=== PATIENT | female | born 1980 | race Caucasian/White ===

== ENCOUNTER 2021-05-05 18:53 | Emergency (ER) | payer BC, SELFPAY ==
[2021-05-05 19:05] VITALS: BP 127/93; PULSE 74; RESP 18; TEMP 36.7; O2SAT 100
--- NOTE | 2021-05-05 19:27 | ED.FEMALEGU ---
HPI - Female Genitourinary General Stated complaint: Urinary Problem Time Seen by Provider: 05/05/21 19:24 Source: patient and RN notes reviewed Mode of arrival: ambulatory Limitations: no limitations History of Present Illness HPI Narrative: 40-year-old female presents with concern for perineal burning, low back discomfort, abdominal discomfort. Reports she had a hysterectomy 2 weeks ago and a bladder sling. Reports having abdominal discomfort post op, that had yet to resolve, however it feels mildly worse. Reports she has been doing more activity than usual and might have overdone it . She denies fever, body aches, chills, nausea, vomiting. Reports normal bowel movements, normal urine output. Denies frequency or urgency. Denies abnormal vaginal bleeding. MD elicited complaint: UTI Related Data Allergies Allergy/AdvReac Type Severity Reaction Status Date / Time vancomycin Allergy Anaphylaxis Verified 05/05/21 19:35 Review of Systems Review of Systems: CONSTITUTIONAL: Denies malaise, chills, sweats, or fever. CARDIOVASCULAR: Denies chest pain, palpitations, or edema. RESPIRATORY: Denies cough or dyspnea. GASTROINTESTINAL: Reports lower abdominal discomfort. Denies nausea, vomiting, diarrhea, bloody, or mucous stools. GENITOURINARY: Reports dysuria. Denies frequency, urgency hematuria. SKIN: Denies rash or itching. MUSCULOSKELETAL: Reports low back pain. Denies myalgia. All systems reviewed & are unremarkable except as noted in HPI and below PMFSH Comments At time of signature, agree with nursing past medical, surgical, social and family history. There is no relevant family history pertinent to the presenting complaint Exam Narrative: GENERAL: Well-appearing, well-nourished, and in no acute distress. HEAD: Normocephalic. EYES: PERRLA, conjunctivae clear. NECK: Supple. No lymphadenopathy CHEST: Clear to auscultation. No respiratory distress. HEART: Regular rate and rhythm. ABDOMEN: Soft, mild suprapubic tenderness upon palpation, nondistended, normal active bowel sounds, no palpable or pulsatile masses, no guarding. No CVA tenderness SKIN: Warm, dry, no rash. NEURO: Alert and oriented x3. PSYCH: Normal mood and affect Course Course Emergency Course: Patient is aware of diagnosis, understands and agrees to treatment plan. Anticipatory guidance given. Patient agrees to follow-up as directed and is aware of reasons to seek care at the emergency department. Portions of this record may have been created with voice recognition software Vital Signs Vital signs: Vital Signs Temperature 98.1 F 05/05/21 19:05 Pulse Rate 74 05/05/21 19:05 Respiratory Rate 18 05/05/21 19:05 Blood Pressure 127/93 H 05/05/21 19:05 Pulse Oximetry 100 05/05/21 19:05 Temperature 98.1 F 05/05/21 19:05 Pulse Rate 74 05/05/21 19:05 Respiratory Rate 18 05/05/21 19:05 Blood Pressure 127/93 H 05/05/21 19:05 Pulse Oximetry 100 05/05/21 19:05 Reviewed. MDM - Female Genitourinary MDM Narrative Medical decision making narrative: Exam findings and UA show no acute concerns or changes; patient is non-toxic appearing and is in no distress. Patient is appropriate for outpatient treatment and follow-up. Differential Diagnosis Differential diagnosis: Likely urinary tract infection, cystitis and other (Infection, postop infection) Lab Data Labs: Urine Glucose Negative Reference Range: Negative Urine Bilirubin Negative Reference Range: Negative Urine Ketone Negative Reference Range: Negative Urine Specific [place] 1.025 Reference Range:1.001-1.035 Urine Blood Negative Refere
== END 2021-05-05 19:40 | disposition home or self-care (01) ==
PROVIDERS: Emergency Provider Nurse Practitioner; PCP Urology
DX: R30.0 Dysuria (principal); N80.9 Endometriosis, unspecified; E28.2 Polycystic ovarian syndrome; Z86.14 Personal history of Methicillin resistant Staphylococcus aureus infection; Z86.16 Personal history of COVID-19
CPT/HCPCS: 81003; 87086; 99213; G0463

== ENCOUNTER 2022-10-05 19:34 | Emergency (ER) | payer BC, SELFPAY ==
[2022-10-05 19:42] VITALS: BP 123/78; PULSE 92; RESP 16; TEMP 37.7; O2SAT 98
--- NOTE | 2022-10-05 19:56 | ED.URI ---
HPI - URI/Sore Throat General Chief Complaint: Upper Respiratory Infection Stated Complaint: Sore Throat Time Seen by Provider: 10/05/22 19:50 Source: patient, RN notes reviewed and old records reviewed Mode of arrival: ambulatory Limitations: no limitations History of Present Illness HPI Narrative: 42-year-old female who presents [facility] with complaints of sore throat, nasal drainage, feeling of congestion and has felt hot and flushed with some low grade fevers for the past 2 days. She states that she had strep throat in July with her present symptoms similar to then. She reports that several family members have had recent strep exposure. Patient has not taken any OTC medications. Daniella reports that she took some left over [place] for her discomfort. . MD elicited complaint: fever, sore throat, rhinorrhea and nasal congestion Onset (ago): day(s) (2) Pain scale (0-10): 6 Treatments prior to arrival: other (left over pain med) Related Data Home Medications Medication Instructions Recorded Confirmed sertraline 100 mg tablet 100 mg PO DAILY 05/05/21 10/05/22 Allergies Allergy/AdvReac Type Severity Reaction Status Date / Time vancomycin Allergy Anaphylaxis Verified 05/05/21 19:35 Review of Systems Review of Systems: CONSTITUTIONAL:Reports malaise, chills, sweats, or fever. EYES: Denies visual changes, redness, or discharge. ENT: Reports rhinorrhea, congestion, sinus pain,no otalgia positive for sore throat. CARDIOVASCULAR: Denies chest pain, palpitations, or edema. RESPIRATORY: Reports no cough.? Denies dyspnea. GASTROINTESTINAL: Denies abdominal pain, nausea, vomiting, diarrhea SKIN: Denies rash or itching. MUSCULOSKELETAL: Denies myalgia. NEUROLOGIC: Denies headache. All systems reviewed & are unremarkable except as noted in HPI and below PMFSH Past Medical History Medical History (Updated 10/09/22 @ 07:50 by Corina Vance NP) Arm vein blood clot from PICC line Endometriosis MRSA (methicillin resistant Staphylococcus aureus) PCOS (polycystic ovarian syndrome) UTI (urinary tract infection) Surgical History Surgical History (Updated 10/09/22 @ 07:43 by Corina Vance NP) H/O foot surgery bunionectomy then infection with total of 7 surgeries H/O: hysterectomy History of bladder surgery bladder surgery History of endometrial ablation Social History Social History (Updated 10/09/22 @ 07:47 by Corina Vance NP) Smoking status: Unknown if ever smoked Alcohol intake: unknown Substance use type: does not use Living arrangements: with family Gender identity (if verbalized by the patient): Female Comments At time of signature, agree with nursing past medical, surgical, social and family history. There is no relevant family history pertinent to the presenting complaint Exam Narrative: GENERAL: Well-appearing, well-nourished, and in no acute distress. HEAD: Normocephalic EYES: PERRLA, conjunctivae clear ENT: Nares clear, turbinates edematous and erythematous, clear discharge. Mucous membranes moist. TM pearly dai with dull light reflex bilaterally; no tragal tenderness. Oropharynx erythematous without lesions. Tonsils red enlarged and without exudate, no drooling, no hoarseness, no trismus, uvula midline.post nasal discharge NECK: Supple lymphadenopathy CHEST: Clear to auscultation, breath sounds equal. No wheezing, rhonchi, rales, or stridor. No respiratory distress, speaks in full sentences.SAO2 98% on room air HEART: Regular rate and rhythm. No murmur heard. SKIN: Warm, dry, no rash. NEURO: Alert and oriented x3. PSYCH: Normal mood and affect Course Course Emergency Course: Patient is aware of diagnosis, understands and agrees to treatment plan.? Anticipatory guidance given.? Patient agrees to follow-up as directed and is aware of reasons to seek care at the emergency department. Portions of this record may have been created with fatou
== END 2022-10-05 20:19 | disposition home or self-care (01) ==
PROVIDERS: Emergency Provider Registered Nurse; PCP Internal Medicine
DX: J02.9 Acute pharyngitis, unspecified (principal)
CPT/HCPCS: 87081; 87880; 99213; G0463

== ENCOUNTER 2025-04-30 09:57 | Emergency (ER) | payer BC, SELFPAY ==
[2025-04-30 10:14] VITALS: BP 114/84; PULSE 83; RESP 18; TEMP 36.6; O2SAT 98
--- OUTSIDE RECORDS SUMMARY | 2025-04-30 10:30 | XMS_ITS | Clinical Summary ---
Author Organization [facility] Address [address] [place] [address] Care Team Providers Care Stitch Burnisher Name Role Phone Jaguar Crespo MD Primary Care Provider Flaco Walden MD Unavailable [phone] Jarred Fuentes MD Unavailable [phone] Dipak Broderick MD Unavailable [phone] Allergies Active Allergy Reactions Criticality Noted Date Comments Benzyl Alcohol Rash Medium 04/09/2023 Allergy patch tested positive Cocamidopropyl Betaine Rash Medium 04/09/2023 Allergy patch tested positive Poison Mary Extract Hives,Itching,Rash High 3 Suspect same reaction with poison oak and sumac Shrimp Anaphylaxis,Rash High Vancomycin Anaphylaxis,Rash High 06/21/2017 Medications sertraline (ZOLOFT) 100 mg tablet Take 1 tablet (100 mg total) by mouth every morning 90 tablet 3 4 Active topiramate (TOPAMAX) 50 mg tablet Take 1 tablet (50 mg total) by mouth 2 (two) times a day Active rosuvastatin (CRESTOR) 5 mg tablet Take 1 tablet (5 mg total) by mouth 3 (three) times a week Saturday, Saturday, and Saturday nights Active spironolactone (ALDACTONE) 100 mg tablet Take 1 tablet (100 mg total) by mouth nightly 5 Active acetaminophen (TYLENOL) 500 mg tablet Take 2 tablets (1,000 mg total) by mouth every 6 (six) hours as needed for pain 60 tablet 5 Active ibuprofen (ADVIL,MOTRIN) 600 mg tablet Take 1 tablet (600 mg total) by mouth 4 (four) times a day as needed for pain (pain) 30 tablet 5 12/12/19 26 Active oxyCODONE (ROXICODONE) 5 mg immediate release tabletIndicatio ns:Pain Take 1 tablet (5 mg total) by mouth every 4 (four) hours as needed for pain 10 tablet 5 Active Additional Information Patient not taking.Reported on 12/23/2024 ondansetron (ZOFRAN) 4 mg tablet Take 1 tablet (4 mg total) by mouth 2 (two) times a day as needed for nausea 20 tablet 5 Active Additional Information Patient not taking.Reported on 12/23/2024 Active Problems Problem Noted Date Diagnosed Date Endometriosis of uterus 11/19/2024 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, in cluding poison mary, sumac, and oak 11/07/2022 Assessment & Plan (11/20/2022 8:58 AM CDT): Improving Allergy added to her list in chart Continue with steroid cream as directed by dermatology Follow up with dermatology as scheduled Encouraged to call if symptoms recur or worsen Encouraged to avoid toxin of plants- wear appropriate clothing to cover exposed areas if planned to be outdoors and around any weeds or brush Patient informed if needs to be treated again, a high dose steroid would be recommended to treat Assessment & Plan (11/07/2022 2:01 PM CDT): Avoid bleach baths OTC Aveeno oat baths prn for itching OTC Benadryl for itching-use as directed-encouraged to avoid taking in daytime or while driving if sedation present Ordered medrol dose pack OTC Calamine lotion or MARY Dry-use as directed Call and schedule appointment if no improvement or worsening Good hand hygiene Avoid scratching-trim nails if needed to avoid scratching vesicles open History of 2019 novel coronavirus disease (COVID -19) 06/07/2022 Mixed hyperlipidemia 06/07/2022 Constipation 04/24/2021 Overview (04/24/2021): Added automatically from request for surgery [id number] Chronic idiopathic constipation 04/06/2021 Urinary, incontinence, stress female 02/24/2021 Overview (02/24/2021): Added automatically from request for surgery [id number] Adhesive capsulitis of right shoulder 12/22/2020 Residual hemorrhoidal skin tags 04/07/2019 Right foot pain 06/09/2018 Overview (06/09/2018): Added automatically from request for surgery [id number] Right arm pain 04/01/2018 Assessment & Plan (04/01/2018 11:27 AM CDT): Please refer to care plan under acute DVT of right upper extremity Acute deep vein thrombosis (DVT) of right upper extremity 03/14/2018 Assessment & Plan (04/01/2018 11:26 AM CDT): Completing holding call right upper extremity duplex extending all the way up to the jugular due to her concurrent right-sided neck pain. Will follow up with patient within addendum to be created the end of this note once receiving the upper extremity duplex. However comparison results are somewhat limited due to vascular surgery not identify exact sizing and exact location of the DVT in right upper extremity 1 previously scan on 03/13. I did educate both daughter as well as mother that often if I am unable to conclude that there is no new clots with this repeat scan due to lack of comparison I would recommend consultation to vascular surgery. We will touch base after completing test, of course continuing Eliquis b.i.d. as previously prescribed and determine need for additional management within addendum and of note Assessment & Plan (03/14/2018 12:08 PM CDT): Likely associated w/ PICC line, but pt was also on oral contraception. - Would d/c PICC line (no additional need for use from an ID standpoint) - Anticoagulation +/- hypercoagulable work-up per primary service + vascular surgery Assessment & Plan (03/14/2018 4:20 AM CDT): Doppler Studies: Extensive DVT in Right subclavian, axillary, and brachial veins. superficial vein thrombus in basilic vein. Chronic venous thrombus in the Left internal jugular vein. Likely due to termite treater ABX with PICC line placement and control medication Apri - heparin drip - Huger 5 q4h PRN - consider VIR consult for thrombolysis in the AM - discuss alternative control medication options for endometriosis and PCOS Osteomyelitis of right foot 03/14/2018 Assessment & Plan (03/18/2018 2:24 PM CDT): 37 y/o female with persistent destruction of her !st MT since bunionectomy surgery 1.5 years ago. One cx + MRSE in 05/2017 by aspiration and another + in 09/29 (cx from OR). She was treated initially with vanc, developed dress and was changed to doxy to complete her course. Presented to ortho recently with night sweats, xray revealed further destruction of her joint. OR 02/04 for I&D, resection of bone and placement of tobra abx spacer. OR cx NGTD from 02/04. She was originally on dapto/cefe, but developed leukopenia on cefepime. Her cefepime was stopped and she was started on levofloxacin 750mg po qd and continued the daptomycin to complete her last two weeks of antibiotics. In her 5th week of therapy, acutely had swelling and purple discoloration to her R arm. She went to local ED and was started on hep gtt for presumed DVT (No us in the ED). She was transferred to [facility], vascular surgery consult and admission to medicine. Transition to [facility]. Her picc line was pulled in house and she was switched to bactrim DS two tabs po bid to complete her course per ID consult by Dr. Zavala. Plan: - email below sent to dr Sunshine- communicating our plan. - our plan is to stop her antibiotics as we would any spacer in the setting of pji. Assuming ortho will give it some time, aspirate again before the next surgery to be sure the infection is clear. - will have her finish out the 3 days of bactrim she has left, then okay to stop. - her esr/crp were normal last week in house. - she can follow up here prn, dr. Ring or the pt can call with any questions or concerns. - we discussed there is no test to make sure the infection is gone and that there is always a risk of infection returning or coming up elsewhere. - advised she see her pcp this week to discuss testing for clotting disorder. She had insult (Picc) in the setting of OCP, but I thought it would be better to check and be sure no underlying clotting disorder. Assessment & Plan (03/14/2018 12:16 PM CDT): Hx R 1st MTP osteomyelitis (prior cultures w/ MRSE) s/p hardware removal + multiple I&Ds + prolonged course of IV antibiotics (most recently, 6 weeks of IV daptomycin + cefepime counting from 02/04/18, complicated by cefepime-induced neutropenia requiring replacement of IV cefepime w/ PO levofloxacin). Surgical wounds are well-healed and inflammatory markers are within normal limits (ESR 6). Original anticipated stop date for current long-term antibiotics was to be 03/18/18. - Continue IV daptomycin + PO levofloxacin for now via peripheral line - Will add-on CPK to existing bloodwork, LFTs within normal limits - If discharged prior to 03/18/18, can transition to Bactrim DS 1 tab PO bid alone (prior MRSE from 09/17/17 was susceptible to TMP-SMX) x 7 days to ensure completion of 6 weeks of appropriate antibiotics - Prior hx of ?blast on outside hospital peripheral blood smear - no evidence per ED notes on repeat smear performed at [facility] on 03/07/18. Pt remains a little anxious about this - consider repeating peripheral blood smear during this admission for reassurance. Assessment & Plan (03/14/2018 3:54 AM CDT): R MTP Osteomyelitis d/t complications from bunionectomy done at OSH. Followed by ID. intermediate frame tender ABX started 02/04/18 with Daptomycin and Cefepime planned for 6 weeks. Developed leukopenia thought to be 2/2 cefepime was switched to Levoquin recently. No systemic symptoms. Anticipated stop date: 03/18/18 - consult ID - continue ABX therapy as above prescribed by ID Major depressive disorder 03/14/2018 Assessment & Plan (04/01/2018 11:28 AM CDT): Increasing Zoloft to 125 mg a day. I did recommend taking her 100 mg a day tablet I also sent over another prescription for 25 mg a day totaling 125 daily. I did advise her that we can consider something such as BuSpar to help in the interim with any acute anxiety she is experiencing it may take good 3-5 days for this new level of medication to be effective. We will touch base with her in a week as scheduled and certainly in the interim with any additional questions or concerns Assessment & Plan (03/14/2018 4:15 AM CDT): - continue home Zoloft 100mg Pyogenic inflammation of bone 02/25/2018 Axillary lymphadenopathy 02/25/2018 Encounter for long-term (current) use of antibio tics 02/25/2018 Osteoarthritis of right foot 01/23/2018 Overview (01/23/2018): Added automatically from request for surgery [id number] Assessment & Plan (02/04/2018 4:06 PM CDT): This is presumed to be infectious osteomyelitis rather than osteoarthritis. Given nonresponse or recurrence from previous infections will treat broadly While awaiting cultures. -okay to place PICC line -daptomycin 400 mg IV Q 24 -cefepime 2 g IV q.12 -will follow up cultures and pathology and adjust as needed -presently, planning for 6 week course followed by suppression given the presence of new hardware Allergic reaction to drug 06/11/2017 Migraine 01/22/2013 Spells 01/22/2013 Encounter for suspected albino ature rupture of amniotic membranes, with rupture of membranes not found 37 weeks gestation of PCOS (polycystic ovarian syndrome) Encounters Date Type Department Care Team Description 02/03/2025 7:07 AM CDT - 02/03/2025 11:59 PM CDT Hospital Encounter [facility] - Imaging [address] [place] [id number] Mass of left breast, unspecified quadrant Discharge Disposition: Discharge to home or self care 02/03/2025 Results Follow-Up [facility] [address] [place] [address] Monik Manley, RN Diagnostic Mammogram Left W Miguel from Last 3 Months Immunizations Immunization Administration Dates Next Due Influenza, Quadrivalent, Spl it, Preservative Free, Intramuscular 04/15/2018,05/05/2015 Influenza, Trivalent, IM (MDV) 05/07/2012,2010 Influenza, Unspecified 06/29/2024(Deferr ed: Patient Refused),11/20/2022(Deferred: Patient Refused),09/12/2021(Deferred: Patient Refused),03/17/2019,05/22/2017 Td, adsorbed 07/15/2002 Surgical History Surgery Date Site/Laterality Comments SECTION x3 COLONOSCOPY 2014 & 09/01 POLYPECTOMY 07/15/2014 - 07/14/2015 FOOT SURGERY 02/27-01/29 Right x7 IR PICC LINE PLACEMENT > 5 YEARS 02/25/2018 N/A LAPAROSCOPY 01/12/2007 - 02/11/2007 For endometriosis with adhesiolysis SHOULDER SURGERY 07/15/1996 - 07/14/1997 Right OTHER SURGICAL HISTORY IVF/Egg retrieval x2 LAPAROTOMY 03/15/2007 - 04/13/2007 For extensive adhesiolysis secondary to ruptured endometrioma FLUORO GUIDED INJECTION SHOULDER RIGHT 01/04/2021 Right ENDOMETRIAL ABLATION TUBAL LIGATION LAPAROSCOPIC TOTAL HYSTERECTOMY 04/14/2021 - 05/14/2021 with bilateral salpingectomy and urethral sling CYSTOSCOPY 04/14/2021 - 05/14/2021 With urethral sling and ureteral stents for intraoperative protection of ureters, concurrent with TLH-BS OOPHERECTOMY 12/11/2024 Left Medical History Medical History Date Comments Colon polyp Osteomyelitis depression PCOS (polycystic ovarian syndrome) Endometriosis, uterus With ruptu re Constipation Anxiety Deep vein thrombosis (DVT) (HCC) 2017 Had PICC lines in for infection and got clots in veins where lines were (was also on BCP) History of COVID-19 05/2020 & 2020 Migraine headache Family History Medical History Relation Name Comments Colon cancer Father Heart attack Father Heart disease Father Hypertension Father Breast cancer Maternal Grandmother Hypertension Mother Heart attack Paternal Grandmother Relation Name Status Comments Father Alive Maternal Grandmother Mother Paternal Grandmother 86 Social History Tobacco Use Types Packs/Day Years Used Date Smoking Tobacco: Never Smokeless Tobacco: Never Alcohol Use Standard Drinks/Week Comments Yes 0 (1 standard drink = 0.6 oz pur e alcohol) rare AUDIT-C Answer Date Recorded Q1: How often do you have a drink containing alc ohol? 2-4 times a month 12/02/2024 Q2: How many drinks containi ng alcohol do you have on a typical day when you are drinking? 1 or 2 12/02/2024 Q3: How often do you have si x or more drinks on one occasion? Never 12/02/2024 PHQ-2 Answer Date Recorded PHQ-2 Total Score (If total score is 3 or more points, staff should administer the PHQ-9) 0 06/29/2024 [place] Depression Scale Answer Date Recorded [place] Depression Scale Total 8 05/21/2019 The thought of harming myself has occurred to me . Never 05/21/2019 Personal Safety Answer Date Recorded Have you ever been in or are you currently in a harmful physical or emotional relationship or is someone making you feel afraid or unsafe? Denies 12/11/2024 Comments No Sex and Gender Information Value Date Recorded Sex Assigned at Not on file Legal Sex Female 12:00 PM CAFETERIA ASSOCIATE Gender Identity Female 05/05/2021 6:15 PM CDT Sexual Orientation Straight 05/05/2021 6: 15 PM CDT Obstetrics History Para Term AB IAB SAB Ectopic Multiple Livin g Live Births 3 3 3 2 3 Date Outcome GA Total Labor Labor/2nd/3rd Weight Sex Type Anes PTL Jes A1 A5 Name Clin 2007 Term 37w 0d M CS-LT ranv 2010 Term 38w 0d M CS-LT ranv 2018 Term M C-Sec tion Living Deshawn Last Filed Vital Signs Vital Sign Reading Time Taken Comments Blood Pressure 120/74 01/08/2025 3:29 PM CDT Pulse 87 12/11/2024 11:45 AM CDT Temperature 36.6 C (97.8 F) 12/11/2024 9:30 AM CDT Respiratory Rate 12 12/11/2024 11:45 AM CDT Oxygen Saturation 95% 12/11/2024 11:45 AM CDT Inhaled Oxygen Concentration - - Weight 69.9 kg (154 lb) 01/08/2025 3:29 PM CDT Height 167.6 cm (5' 6) 12/11/2024 7:00 AM CDT Body Mass Index 24.86 12/11/2024 7:00 AM CDT Plan of Treatment Health Maintenance Due Date Last Done Comments Varicella Vaccines (1 of 2 - 13+ 2-dose series) 1994 Hepatitis B Screening 09/16/1999 DTaP/Tdap/Td Vaccine (1 - Tdap) 07/16/2002 07/15/2002 HPV Vaccines (1 - 3-dose SCDM series) 2008 Covid-19 Vaccine (2 - 2024- season) 2025 04/07/2021 Influenza Vaccine (#1) 2025 9, 04/15/2018, 05/22/2017, Additional history exists Depression Screening 06/29/2025 06/29/2024, 06/25/2023, 01/10/2023, Additional history exists Regular Well Visit/Exam 18-64 06/29/2025 06/29/2024, 03/04/2024, 06/25/2023, Additional history exists Breast Cancer Screening-Mammogram 08/06/2025 08/06/2024, 07/16/2023, 05/23/2022, Additional history exists Colon Cancer Screening-Colonoscopy 06/01/2026 06/01/2021, 10/16/2017, 09/01/2014, Additional history exists Hepatitis C Screening Completed 11/03/2018 Pneumococcal vaccine <65 Aged Out No longer eligible based on patient's age to complete this topic Medical Devices Implanted Type Area Irrigation Laborer Device Identifier Shelf Expiration Date Model / Serial / Lot Musculoskeletal Transplant [id number] 4-30mm Allograft Frozen [id number] Wedge Graft Bone - [id number] - [id number] Implanted:Qty: 1 on 06/24/2018 by Esau Ring MD at [facility] Bone Right: Foot Musculoskeletal Transplant 01/12/2022 [id number] / [id number] / [id number] Infuse 14mm 23mm Absorbable Sponge Sterile Water Syringe Needle - S0 - [id number] Implanted:Qty: 1 on 06/24/2018 by Esau Ring MD at [facility] Other - see comments Right: Foot Medtronic Sofamor Danek 09/11/2019 [id number] / 0 / [id number] Orthohelix [id number] Mini Maxlock Extreme Tribrid 4 Hole Low Profile Gilbert Plate - S0 - [id number] Implanted:Qty: 1 on 06/24/2018 by Esau Ring MD at [facility] Plate Right: Foot Orthohelix 06/24/2018 [id number] / 0 / Orthohelix [id number] Maxtorque 4mm 42.5mm Cannulated Blunt Foot Long Thread Screw Bone Latex Free - S0 - [id number] Implanted:Qty: 1 on 06/24/2018 by Esau Ring MD at [facility] Screw Right: Foot Orthohelix 06/24/2018 [id number] / 0 / Orthohelix [id number] Mini Maxlock Extreme 2.7mm 12mm Self Retain Low Profile Lower - S0 - [id number] Implanted:Qty: 1 on 06/24/2018 by Esau Ring MD at [facility] Screw Right: Foot Orthohelix 06/24/2018 [id number] / 0 / Orthohelix [id number] Mini Maxlock Extreme 2.7mm 16mm Mtp Screw Bone Nonsterile Magenta - S0 - [id number] Implanted:Qty: 1 on 06/24/2018 by Esau Ring MD at [facility] Screw Right: Foot Orthohelix 06/24/2018 [id number] / 0 / Orthohelix [id number] Mini Maxlock Extreme 2.7mm 18mm Nonlock Lower Extremity Screw - S0 - [id number] Implanted:Qty: 2 on 06/24/2018 by Esau Ring MD at [facility] Screw Right: Foot Orthohelix 06/24/2018 [id number] 8 / 0 / Orthohelix [id number] Mini Maxlock Extreme 2.7mm 14mm Mtp Screw Bone Nonsterile Magenta - S0 - [id number] Implanted:Qty: 2 on 06/24/2018 by Esau Ring MD at [facility] Screw Right: Foot Orthohelix 06/24/2018 [id number] / 0 / Jourdan [employer] Inc [id number] Palacos R Cement 40gm Bone Green - [id number] Implanted:Qty: 1 on 02/04/2018 by Esau Ring MD at [facility] Medicine [employer] Inc 05/14/2021 [id number] / / [id number] Zyncd Scientific Shahana [id number] Obtryx Ii Precisionblue Advantage .15mm 22cm Sling Halo Needle - [id number] Implanted:Qty: 1 on 04/18/2021 by Víctor Chisholm MD at [facility] N/A: Pelvis [place] [employer] Shahana [id number] 01/05/2024 [id number] / / [id number] Explanted Type Area Irrigation Laborer Device Identifier Shelf Expiration Date Model / Serial / Lot Orthohelix [id number]-040 Mini Maxlock Extreme Ollie Tip Lower Extremity Wire Fixation - S0 - [id number] Explanted:Qty: 2 on 06/24/2018 by Esau Ring MD at [facility] Wire Right: Foot Orthohelix 06/24/2018 [id number]-040 / 0 / [employer] [id number] Rachael .062in 9in 1 Trocar Smooth Wire Fixation - S0 - [id number] Explanted:Qty: 4 on 06/24/2018 at [facility] Wire Right: Foot [employer] 06/24/2018 [id number] / 0 / [employer] [id number] Rachael .062in 9in 2 Trocar Wire Fixation - S0 - [id number] Explanted:Qty: 4 on 06/24/2018 by Esau Ring MD at [facility] Wire Right: Foot [employer] 06/24/2018 [id number] / 0 / Procedures Procedure Name Priority Date/Time Associated Diagnosis Comments DIAGNOSTIC MAMMOGRAM LEFT W MIGUEL Schedule Routine, Read Routine (OP Routine) 02/03/2025 7:30 AM CDT Mass of left breast, unspecified quadrant DIAGNOSTIC MAMMOGRAM BILATERAL W MIGUEL Schedule Routine, Read Routine (OP Routine) 08/06/2024 8:39 AM CAFETERIA ASSOCIATE Breast pain, left COLONOSCOPY 06/01/2021 7:19 AM CAFETERIA ASSOCIATE HEPATITIS C ANTIBODY Routine 11/03/2018 from Last 3 Months or Most Recently Relevant to Health Maintenance Results * Diagnostic Mammogram Left W Miguel (02/03/2025 7:30 AM CDT) Anatomical Region Laterality Modality Breast Left Mammography 02/03/2025 11:0 5 AM CDT Impressions 02/03/2025 11:05 AM CDT Unchanged left medial asymmetry OVERALL FINAL ASSESSMENT: BI-RADS CATEGORY 3: Probably benign RECOMMENDATIONS: Left diagnostic mammogram in 6 months. Bilateral annual mammography will be due at the same time. Findings and recommendations were communicated to the patient. Electronically signed by: Ginny Isaac M.D. Narrative 02/03/2025 11:05 AM CDT EXAMINATION/TECHNIQUE: Left digital diagnostic mammogram including cad and digital breast tomosynthesis. HISTORY: Follow-up probably benign asymmetry left medial breast. Chronic left breast pain, this was evaluated by ultrasound last time. COMPARISON: Mammograms dating back to 2021 FINDINGS: The breasts are heterogenously dense, which may obscure small masses. Asymmetry in the mid medial breast remains unchanged. No new findings noted. The area of chronic pain was evaluated by ultrasound previously, there is no additional imaging was done for this area today. us Flaco Walden MD IMG MAMMO PROCEDURES Yamile l Result * Diagnostic Mammogram Bilateral W Miguel (08/06/2024 8:39 AM CAFETERIA ASSOCIATE) Anatomical Region Laterality Modality Breast Bilateral Mammography 08/06/2024 9:37 AM CAFETERIA ASSOCIATE Impressions 08/06/2024 9:37 AM CAFETERIA ASSOCIATE BI-RADS Category 3: Probably benign Recommendation: Left breast diagnostic mammogram in 6 months (attention inner left breast). Results and recommendations discussed with the patient. Electronically signed by: Moose Brandt M.D. Narrative 08/06/2024 9:37 AM CAFETERIA ASSOCIATE Bilateral diagnostic mammogram with CAD and tomosynthesis and limited left breast ultrasound HISTORY: Left breast pain. Annual exam. FINDINGS: The breasts are heterogeneously dense, which may obscure small masses. Comparison is made with prior available studies. There are no suspicious/developing masses appreciated. There are no suspicious microcalcifications seen. There is slight asymmetry in the inner left breast cc view which appears similar to 07/16/2023 exam with focal spot compression. Limited left breast ultrasound inner left breast performed showing no mass, distortion, or significant abnormality. Marialuisa Francis NP IMG MAMMO PROCEDURES Final Result * COLONOSCOPY (06/01/2021 7:19 AM CAFETERIA ASSOCIATE) Anatomical Region Laterality Modality Other Narrative Procedure Note Migue Peña MD - 06/01/2021 7:19 AM CST [facility] Patient Name: Cely Ulloa Procedure Date: 06/01/2021 7:19 AM Date of : 1980 Admit Type: Outpatient Age: 40 Gender: Female Attending MD: Migue Peña M.D. Room: [facility] ENDOSCOPY ROOM 02 Note Status: Finalized Procedure: Colonoscopy Indications: Screening in patient at increased risk: Familyhistory of 1st-degree relative with colorectal cancerbefore age 60 years Referring MD: Jaguar Crespo M.D. Providers: Migue Pñea M.D. Medicines: Propofol per Anesthesia Complications: No immediate complications. Estimated blood loss:None. Estimated Blood Loss: Estimated blood loss: none. Procedure: Pre-Anesthesia Assessment: - Immediately prior to administration ofmedications, the patient was re-assessed for adequacy to receive sedatives. - Sedation was administered by an anesthesia professional. General anesthesia was attained. - The heart rate, respiratory rate, oxygen saturations, blood pressure, adequacy of pulmonary ventilation, and response to care were monitored throughout the procedure. - The physical status of the patient wasre-assessed after the procedure. The benefits, risks and alternatives of theprocedure and sedation were discussed and informed consentwas obtained. All questions were answered. Please referto the signed informed consent document in the medical record. The scope was passed under direct vision.The [id number] was introduced through the anusand advanced to the the cecum, identified byappendiceal orifice and ileocecal valve. The colonoscopy was performed with ease. The patient tolerated the procedure well. The quality of the bowelpreparation was excellent. The quality of the bowel preparation was evaluated using the BBPS ([place] BowelPreparation Scale) with scores of: Right Colon = 3, Transverse Colon = 3 and Left Colon = 3 (entire mucosa seenwell with no residual staining, small fragments of stoolor opaque liquid). The total BBPS score equals 9. The bowel preparation used was SUPREP via split dose instruction. Bowel prep was administered using asplit dose. Findings: The entire examined colon appeared normal. Impression: - The entire examined colon is normal. - No specimens collected. Recommendation: - Repeat colonoscopy in 5 years for screeningpurposes. Electronically signed by Dr.Matthew Mariana M.D. Migue Peña M.D. 06/01/2021 10:44:39 AM . Number of Addenda: 0 Note Initiated On: 06/01/2021 7:19 AM Recognized by the [employer] for promoting quality in endoscopy us Migue Peña MD ENDOSCOPY PROCEDURES Final R esult * Hepatitis C antibody (11/03/2018) SCRIBED HCV ab Non-Reacti ve Blood specimen (specimen) us Not In File Miscellaneous LAB MICROBIOLOGY - GEN ERAL ORDERABLES Final Result from Last 3 Months or Most Recently Relevant to Health Maintenance Insurance [facility] [employer] [facility] BLUE ACCESS CHOICE [place] BL[place] CHO[place] BL[place] CHO[place] Advance Directives For more information, please contact: [phone] * Full Code (Latest Code Status on File) Date Activated Date Inactivated Comments 06/01/2021 9:32 AM 06/01/2021 3:27 PM * Full Code Date Activated Date Inactivated Comments 11/09/2020 2:40 PM 11/09/2020 2:42 PM * Full Code Date Activated Date Inactivated Comments 05/18/2019 3:32 PM 05/22/2019 5:51 PM * Full Code Date Activated Date Inactivated Comments 05/18/2019 8:13 AM 05/18/2019 3:32 PM Full CPR in case of cardiopulmonary arrest * Full Code Date Activated Date Inactivated Comments 04/17/2019 2:22 AM 04/17/2019 2:38 PM Care Teams Stitch Burnisher Relationship Specialty Start Date End Date Jaguar Crespo MD PCP - General 10/22/13 Flaco Walden MD [address] [place] [address] Referring Physician Obstetrics and Gynecology 04/07/19 Jarred Fuentes MD [address] [place] [address] Consulting Physician Gastroenterology 04/07/19 Dipak Broderick MD [address] [place] [address] Consulting Physician Orthopedic Surgery 03/31/20
--- OUTSIDE RECORDS SUMMARY | 2025-04-30 10:30 | XMS_ITS | Clinical Summary ---
Author Organization [facility] Address [address] [place] [address] Care Team Providers Care Director Cost Name Role Phone Jaugar Crespo MD Primary Care Provider Source Comments [facility],non-owned Affiliates and Associated Physician Practices is amultiple site organization consisting of ambulatory clinics and hospital sitesin [place], [place], [place] and [place]. This disclosure is being madepursuant to the Care Everywhere program and may not contain all information available regarding this patient. Last updated 18.[facility] tamyca Allergies Active Allergy Reactions Criticality Noted Date Comments Shellfish Allergy 10/17/2011 Medications * Be aware that medications may not be up to date on this document. Alwaysverify current medications with the patient. norethindrone-e thinyl estradiol (ZENCHENT) 0.4-35 MG-MCG tablet Take 1 Tab by mouth once daily. Active lacosamide (VIMPAT) 100 MG tablet Take 1 Tab by mouth 2 times daily. 60 Tab 5 10/19/2014 Active amoxicillin (AMOXIL) 500 MG tablet Take 500 mg by mouth 2 times daily Active butalbital-acet aminophen-caffe ine (FIORICET) 50-325-40 MG tablet Take 1 Tab by mouth every 8 hours as needed for Headache Active lisinopril (PRINIVIL; ZESTRIL) 10 MG tablet Take 10 mg by mouth once daily Active metroNIDAZOLE (METROGEL) 0.75 % gel Apply to affected area 2 times daily Active sertraline (ZOLOFT) 100 MG tablet Take 100 mg by mouth once daily Active Active Problems Problem Noted Date Diagnosed Date Spells 01/22/2013 Migraine 01/22/2013 Family History Medical History Relation Name Comments Hypertension Father Relation Name Status Comments Father Social History Tobacco Use Types Packs/Day Years Used Date Smoking Tobacco: Never Smokeless Tobacco: Never Tobacco Cessation:Counseling Given: Yes Alcohol Use Standard Drinks/Week Comments No 0 (1 standard drink = 0.6 oz pur e alcohol) Comments Unknown Sex and Gender Information Value Date Recorded Sex Assigned at Not on file Legal Sex Female 12:59 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 Gender Identity Not on file Sexual Orientation Not on file Last Filed Vital Signs Vital Sign Reading Time Taken Comments Blood Pressure 117/82 01/17/2015 1:38 PM CDT Pulse 76 01/17/2015 1:38 PM CDT Temperature 36.6 C (97.8 F) 11/16/2012 7:21 AM CDT Respiratory Rate 18 11/16/2012 7:21 AM CDT Oxygen Saturation 99% 11/16/2012 7:21 AM CDT Inhaled Oxygen Concentration - - Weight 60.8 kg (134 lb) 01/17/2015 1:38 PM CDT Height 167.6 cm (5' 6) 01/17/2015 1:38 PM CDT Body Mass Index 21.63 01/17/2015 1:38 PM CDT Plan of Treatment Health Maintenance Due Date Last Done Comments LIPID TESTING 1981 MAMMOGRAM 1981 HIV SCREENING 1996 HEPATITIS C SCREENING 09/11/1999 DTAP/TDAP/TD VACCINES (1 - Tdap) 2000 HEPATITIS B VACCINE (1 of 3 - 19+ 3-dose series) 2000 HPV VACCINE (1 - 3-dose SCDM series) 2008 DEPRESSION SCREENING 07/15/2024 COVID-19 VACCINE ( - 2023-2 5 season) 2025 INFLUENZA VACCINE (#1) 2025 ZOSTER VACCINE (1 of 2) 09/16/2031 HIB VACCINE Aged Out No longer eligi ble based on patient's age to complete this topic MENINGOCOCCAL (Group B) VACC INE SHARED DECISION-MAKING Aged Out No longer eligibl e based on patient's age to complete this topic MENINGOCOCCAL GROUPS A/C/Y/W VACCINE Aged Out No longer eligible b ased on patient's age to complete this topic PNEUMOCOCCAL VACCINE Aged Out No long er eligible based on patient's age to complete this topic Insurance [facility] Advance Directives * FULL RESUSCITATION (Latest Code Status on File) Date Activated Date Inactivated Comments 11/10/2012 9:55 AM 11/16/2012 2:37 PM Care Teams Director Cost Relationship Specialty Start Date End Date Jaguar Crespo MD PCP - General Internal Medicine 10/17/11
--- OUTSIDE RECORDS SUMMARY | 2025-04-30 10:30 | XMS_ITS | Encounter Summary ---
Author Organization [facility] Address [address] [place] [address] Phone Care Team Providers Care Color Sprayer Name Role Phone Jaguar Crespo MD Primary Care Provider Flaco Walden MD Unavailable [phone] Jarred Fuentes MD Unavailable [phone] Dipak Broderick MD Unavailable Encounter Details Date Type Department Care Team (Late st Contact Info) Description 08/14/2017 Orders Only [facility] ProviderMaria Guadalupe MD [address] [place] [address] Social History Tobacco Use Types Packs/Day Years Used Date Smoking Tobacco: Never Smokeless Tobacco: Never Alcohol Use Standard Drinks/Week Comments Yes 0 (1 standard drink = 0.6 oz pur e alcohol) Comments Unknown Sex and Gender Information Value Date Recorded Sex Assigned at Not on file Legal Sex Female 12:00 PM SHREDDING FLOOR EQUIPMENT 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 us Historical Provider LAB BLOOD ORDERABLES Yamiel espinoza Result documented in this encounter Visit Diagnoses Not on filedocumented in this encounter Additional Health Concerns Infection Onset Date Last Indicated Resolved Time MRSA Comment:Backloaded May 03, 2011 Pt now meets criteria to have MRSA contact isolation discontinued. Demetrius Lucio RN 04/17/19 07/24/2010 07/24/2010 04/17/2019 7:47 AM C DT COVID: Suspected 02/07/2022 02/07/2022 02/07/2022 3:16 PM CDT COVID: Suspected 03/03/2022 03/03/2022 03/03/2022 12:34 PM CDT COVID19 03/03/2022 03/03/2022 03/13/2022 3:05 AM CDT COVID: Recovered Comment:Added based on recent COVID infection. 03/13/2022 04/26/2022 07/11/2022 3:[address] COVID: Suspected 08/04/2022 08/04/2022 08/04/2022 10:49 AM SHREDDING FLOOR EQUIPMENT OPERATOR COVID: Suspected 08/06/2024 08/06/2024 08/06/2024 10:29 PM SHREDDING FLOOR EQUIPMENT OPERATOR documented as of this encounter Care Teams Color Sprayer Relationship Specialty Start Date End Date Jaguar Crespo MD PCP - General 10/22/13 Flaco Walden MD [address] [place] [address] Referring Physician Obstetrics and Gynecology 04/07/19 Jarred Fuentes MD [address] [place] [address] Consulting Physician Gastroenterology 04/07/19 Dipak Broderick MD [address] [facility] [place] [address] [place] [address] Consulting Physician Orthopedic Surgery 03/31/20 documented as of this encounter
--- OUTSIDE RECORDS SUMMARY | 2025-04-30 10:30 | XMS_ITS | Encounter Summary ---
Author Organization [facility] Address [address] [place] [address] Phone Care Team Providers Care Account Executive Sales Representative Name Role Phone Jaguar Crespo MD Primary Care Provider Flaco Walden MD Unavailable [phone] Jarred Fuentes MD Unavailable [phone] Dipak Broderick MD Unavailable [phone] Encounter Details Date Type Department Care Team (Latest Contact Info) Description 05/23/2017 Orders Only [facility] CONVERSION Scanning, Provider Social History Tobacco Use Types Packs/Day Years Used Date Smoking Tobacco: Never Alcohol Use Standard Drinks/Week Comments Yes 0 (1 standard drink = 0.6 oz pur e alcohol) Comments Unknown Sex and Gender Information Value Date Recorded Sex Assigned at Not on file Legal Sex Female 12:00 PM HANDBAG DESIGNER Gender Identity Female 05/05/2021 6:15 PM CDT Sexual Orientation Straight 05/05/2021 6: 15 PM CDT documented as of this encounter Plan of Treatment Not on file documented as of this encounter Procedures Procedure Name Priority Date/Time Associated Diagnosis Comments VASCULAR LABORATORY REPORT 05/23/2017 10:16 PM HANDBAG DESIGNER documented in this encounter Results * VASCULAR LABORATORY REPORT (05/23/2017 10:16 PM HANDBAG DESIGNER) Anatomical Region Laterality Modality Ultrasound us Provider Scanning CV VASCULAR PROCEDURES Final R esult documented in this encounter Visit Diagnoses Not [...] COVID: Suspected 08/04/2022 08/04/2022 08/04/2022 10:49 AM HANDBAG DESIGNER COVID: Suspected 08/06/2024 08/06/2024 08/06/2024 10:29 PM HANDBAG DESIGNER documented as of this encounter Care Teams Account Executive Sales Representative Relationship Specialty Start Date End Date Jaguar Crespo MD PCP - General 10/22/13 Flaco Walden MD [address] [facility] [address] [place] [address] Referring Physician Obstetrics and Gynecology 04/07/19 Jarred Fuentes MD [address] [place], [place] [id number] Consulting Physician Gastroenterology 04/07/19 Dipak Broderick MD [address] [facility] [address] [place] [address] Consulting Physician Orthopedic Surgery 03/31/20 documented as of this encounter
--- NOTE | 2025-04-30 10:34 | ED.URI ---
HPI - URI/Sore Throat General Chief Complaint: Upper Respiratory Infection Stated Complaint: Sore Throat/Chest Congestion Time Seen by Provider: 04/30/25 10:27 Source: patient and RN notes reviewed Mode of arrival: ambulatory Limitations: no limitations History of Present Illness HPI Narrative: 44-year-old female patient presents with a 4 day history of cough, sore throat, chest congestion, postnasal drip, hoarseness. Denies fever or shortness of breath. Symptoms worsened yesterday. She has tried many [id number] treatments without improvement. Currently rates her pain 6/10 with swallowing. Related Data Home Medications ?Medication ?Instructions ?Recorded ?Confirmed ?Last Taken ?Type sertraline 100 mg tablet 100 mg PO DAILY 05/05/21 10/05/22 Unknown History Allergies Allergy/AdvReac Type Severity Reaction Status Date / Time shrimp Allergy Severe Anaphylaxis Verified 04/30/25 10:43 vancomycin Allergy Anaphylaxis Verified 04/30/25 09:59 PMFSH Past Medical History Medical History Arm vein blood clot from PICC line UTI (urinary tract infection) MRSA (methicillin resistant Staphylococcus aureus) PCOS (polycystic ovarian syndrome) Endometriosis Surgical History Surgical History History of endometrial ablation History of bladder surgery bladder surgery H/O foot surgery bunionectomy then infection with total of 7 surgeries H/O: hysterectomy Social History Social History Smoking status: Unknown if ever smoked Alcohol intake: unknown Substance use type: does not use Living arrangements: with family Gender identity (if verbalized by the patient): Female Comments At time of signature, I have reviewed and agree with nursing past medical, surgical, social and family history unless otherwise noted. Please see nursing chart for further information. There is no relevant family history pertinent to the presenting complaint Exam Narrative: GENERAL: Mildly ill-appearing, well-nourished, and in no acute distress. HEAD: Normocephalic, atraumatic. EYES: EOMI. No redness or drainage. Conjunctivae normal. ENT: Mucous membranes pink and moist. Nares congested with rhinorrhea. TMs normal bilaterally. Throat normal with small amount of postnasal drainage posteriorly. Uvula midline. Hoarse voice. NECK: Normal AROM. Supple. No lymphadenopathy. CHEST: No respiratory distress. Clear to auscultation. HEART: Regular rate and rhythm. No murmur appreciated. EXTREMITIES: Normal range of motion. No edema. SKIN: Warm, dry, no rash. Capillary refill normal. Normal skin turgor. NEURO: No focal deficits. Alert and oriented x3. Gait steady. PSYCH: Normal affect. No signs of depression or anxiety. Course Course Level of Care: Express Care Visit Vital Signs Vital signs: Vital Signs Temperature 97.9 F 04/30/25 10:14 Pulse Rate 83 04/30/25 10:14 Respiratory Rate 18 04/30/25 10:14 Blood Pressure 114/84 04/30/25 10:14 Pulse Oximetry 98 04/30/25 10:14 Oxygen Delivery Room Air 04/30/25 10:14 Temperature 97.9 F 04/30/25 10:14 Pulse Rate 83 04/30/25 10:14 Respiratory Rate 18 04/30/25 10:14 Blood Pressure 114/84 04/30/25 10:14 Pulse Oximetry 98 04/30/25 10:14 Oxygen Delivery Room Air 04/30/25 10:14 Reviewed MDM - URI/Sore Throat MDM Narrative Medical decision making narrative: 44-year-old female patient presents with a 4 day history of cough, sore throat, chest congestion, postnasal drip, hoarseness. OTC treatment without improvement. Upon exam, patient is mildly ill appearing with nasal congestion and rhinorrhea with some postnasal drainage as well as moderately hoarse voice. Rapid strep negative. Culture pending. Symptoms likely viral in etiology. Discussed [id number] medication use and duration of illness. 1 time dose of dexamethsone given for throat discomfort. No prescription medications indicated at this time. Anticipatory guidance given. VSS. Differential Diagnosis Differential diagnosis: Likely upper respiratory infection, viral infection, bronchitis, pharyngitis and other (Strep throat) Lab Data Attestation: I reviewed the patient's lab results. Lab results narrative: Rapid strep negative Labs: Lab Results 04/30/25 Range/Units 10:55 POC Grp A Strep Screen Negative (Negative) Critical Care Time Critical Care Time Critical Care Time: No Discharge Plan Discharge Clinical Impression: Upper respiratory infection Qualifiers: URI type: unspecified URI Qualified Code(s): J06.9 - Acute upper respiratory infection, unspecified Patient Disposition: Home Condition: Stable Instructions: Upper Respiratory Infection (DC) Additional Instructions: Your rapid strep swab was negative today at [facility]. You will be notified in a few days if the culture comes back positive for strep, and appropriate antibiotics will be called in for you at that time. Your symptoms are likely due to a viral illness, which is not treated with antibiotics. Viral symptoms can be present for up to 7-10 days. Take Tylenol or ibuprofen for fever or pain. You have been given a 1 time dose of steroids to help with your throat discomfort. Rest and stay hydrated. Follow up with your PCP in 7 days if symptoms are not improving. Go to the ER immediately if you have any difficulty breathing or swallowing. Patient Language: Tuvaluan Prescriptions: No Action sertraline 100 mg tablet 100 mg PO DAILY Follow-up/Referrals: Cherie,Jaguar Cowan MD [Primary Care Provider] Time of Disposition: 10:46
[2025-04-30] MEDS: dexAMETHasone SOD PHOS INJ 10 MG/ML 1 ML VIAL BY MOUTH (10:48)
[2025-04-30 10:57] LABS: EDSTREPNEGPOS1 Negative (Negative)
== END 2025-04-30 11:04 | disposition home or self-care (01) ==
PROVIDERS: Emergency Provider Nurse Practitioner; PCP Internal Medicine
DX: J06.9 Acute upper respiratory infection, unspecified (principal); E28.2 Polycystic ovarian syndrome; N80.9 Endometriosis, unspecified; Z86.14 Personal history of Methicillin resistant Staphylococcus aureus infection
CPT/HCPCS: 87081; 87880; 99213; G0463; J1100